=== PATIENT | female | born 1975 | race African-American/Black ===

== ENCOUNTER 2016-05-11 16:56 | Emergency (ER) | payer OTHER ==
[~2016-05-11 16:56] MED LIST: ESCI10TA PO; LEVE500T53 PO; SULF-168 PO; TRAZ-147 PO
== END 2016-05-11 18:06 | disposition left against medical advice (07) ==
LOC: EMS 16:58
DX: Z04.1 Encounter for examination and observation following transport accident (principal); Z53.21 Procedure and treatment not carried out due to patient leaving prior to being seen by health care provider

== ENCOUNTER 2016-05-11 18:43 | Emergency (ER) | payer OTHER ==
[~2016-05-11] VITALS: Ht 160 cm; Wt 91.8 kg
[2016-05-11] MEDS ORDERED: ONDANSETRON HCL 4 MG/2 ML VIAL IM ONE (20:15)
[2016-05-11] MEDS ORDERED: HYDROmorphone 2 MG/ML SYRINGE IM ONE (20:15)
[2016-05-11 20:31] VITALS: BP 128/78
== END 2016-05-11 20:43 | disposition home or self-care (01) ==
LOC: EMS 18:43
DX: M25.551 Pain in right hip (principal); G89.29 Other chronic pain; I10 Essential (primary) hypertension; F41.9 Anxiety disorder, unspecified; G40.909 Epilepsy, unspecified, not intractable, without status epilepticus; J45.909 Unspecified asthma, uncomplicated; Z88.5 Allergy status to narcotic agent; Z88.6 Allergy status to analgesic agent
CPT/HCPCS: 96372; 99284; J1170; J2405

== ENCOUNTER 2017-09-03 11:25 | Emergency (ER) | payer MEDICAID, OTHER ==
[~2017-09-03] VITALS: Ht 160 cm; Wt 93.2 kg
[~2017-09-03 11:25] MED LIST changes: -SULF-168 PO; +SULF1TAB3 PO; -TRAZ-147 PO; +TRAZ-220 PO
[2017-09-03] MEDS ORDERED: KETOROLAC TROMETHAMINE 60 MG/2 ML VIAL IM ONE (13:30)
[2017-09-03] MEDS ORDERED: ONDANSETRON HCL 4 MG TABLET PO ONE (15:00)
[2017-09-03] MEDS ORDERED: HYDROCODONE/ACETAMINOPHEN 5-325 MG TABLET PO ONE (15:00)
[2017-09-03 16:35] VITALS: BP 132/78
== END 2017-09-03 17:26 | disposition home or self-care (01) ==
LOC: EMS 11:26
DX: S89.92XA Unspecified injury of left lower leg, initial encounter (principal); M25.552 Pain in left hip; I10 Essential (primary) hypertension; J45.909 Unspecified asthma, uncomplicated; Z88.5 Allergy status to narcotic agent; Z88.6 Allergy status to analgesic agent; W18.39XA Other fall on same level, initial encounter; Y93.89 Activity, other specified; Y92.89 Other specified places as the place of occurrence of the external cause; Y99.8 Other external cause status
CPT/HCPCS: 29505; 73503; 73562; 81025; 96372; 99284; J1885; Q0162

== ENCOUNTER 2018-01-29 13:18 | Emergency (ER) | payer MEDICAID ==
[~2018-01-29] VITALS: Ht 160 cm; Wt 81.5 kg
[2018-01-29 13:19] VITALS: BP 112/77
[2018-01-29 13:34] LABS: GLUCOSE,POINT OF CARE 106 MG/DL (70-110)
[2018-01-29 15:53] LABS: BASOPHILS % (AUTO) 0.7 % (0.0-2.0); EOSINOPHILS % (AUTO) 1.1 % (1.0-6.0); HEMATOCRIT 35.4 % (36-46); HEMOGLOBIN 11.2 g/dL (12.0-16.0); LYMPHOCYTES # (AUTO) 1.7 K/uL (1.0-4.8); LYMPHOCYTES % (AUTO) 26.4 % (22.0-44.0); MEAN CORPUSCULAR HEMOGLOBIN 24.2 pg (26.0-34.0); MEAN CORPUSCULAR HGB CONC 31.6 G/dL (31.0-37.0); MEAN CORPUSCULAR VOLUME 77 fL (80-100); MONOCYTES # (AUTO) 0.4 K/uL (0.1-1.0); MONOCYTES % (AUTO) 6.5 % (2.0-9.0); NEUTROPHILS # (AUTO) 4.2 K/uL (1.8-7.7); NEUTROPHILS % (AUTO) 65.3 % (40.0-70.0); PLATELET COUNT (AUTO) 609 K/uL (150-450); RED BLOOD CELL COUNT(AUTO) 4.63 MIL/uL (4.00-5.20); RED CELL DISTRIBUTION WIDTH 21.4 % (11.5-14.5)
[2018-01-29 15:58] LABS: ANION GAP 9 mmol/L (8-16); CALCIUM, TOTAL 9.4 mg/dL (8.8-10.5); CARBON DIOXIDE 29 mmol/L (22-29); CHLORIDE 98 mmol/L (98-107); CREATININE 0.68 mg/dL (0.60-1.30); GLOMERULAR FILTR. RATE CALC > 60 mL/min (>60); GLUCOSE,RANDOM 98 mg/dL (70-110); POTASSIUM 3.8 mmol/L (3.5-5.1); SODIUM SERUM 136 mmol/L (136-145); UREA NITROGEN, BLOOD 15 mg/dL (7-18)
[2018-01-29 16:10] LABS: ALANINE AMINOTRANSFERASE 21 U/L (12-78); ALBUMIN 3.7 g/dL (3.4-5.0); ALKALINE PHOSPHATASE 86 U/L (46-116); ASPARTATE AMINOTRANSFERASE 21 U/L (15-37); BILIRUBIN,TOTAL 0.2 mg/dL (0.1-1.0); HCG,QUANTITATIVE < 1 mIU/mL (0-6); TOTAL PROTEIN, SERUM 9.1 g/dL (6.4-8.2)
[2018-01-29] MEDS ORDERED: OxyCODONE HCL/ACETAMINOPHEN 5-325 MG TABLET PO ONE (17:45)
== END 2018-01-29 18:17 | disposition home or self-care (01) ==
LOC: EMS 13:19
DX: M17.12 Unilateral primary osteoarthritis, left knee (principal); M16.12 Unilateral primary osteoarthritis, left hip; R07.9 Chest pain, unspecified; F41.9 Anxiety disorder, unspecified; F32.9 Major depressive disorder, single episode, unspecified; I10 Essential (primary) hypertension; Z88.5 Allergy status to narcotic agent; Z88.6 Allergy status to analgesic agent
CPT/HCPCS: 93005

== ENCOUNTER 2019-04-05 19:28 | Inpatient (IN) | payer MEDICAID ==
[~2019-04-05] VITALS: Ht 160 cm; Wt 78.7 kg
[~2019-04-05 19:28] MED LIST changes: -SULF1TAB3 PO; -TRAZ-220 PO; +TRAZ-257 PO
[2019-04-05 22:10] LABS: BASOPHILS % (AUTO) 1.8 % (0.0-2.0); EOSINOPHILS % (AUTO) 2.7 % (1.0-6.0); HEMATOCRIT 32.8 % (36-46); HEMOGLOBIN 10.2 g/dL (12.0-16.0); LYMPHOCYTES # (AUTO) 1.6 K/uL (1.0-4.8); LYMPHOCYTES % (AUTO) 35.8 % (22.0-44.0); MEAN CORPUSCULAR HEMOGLOBIN 23.5 pg (26.0-34.0); MEAN CORPUSCULAR VOLUME 76 fL (80-100); MONOCYTES # (AUTO) 0.2 K/uL (0.1-1.0); MONOCYTES % (AUTO) 5.4 % (2.0-9.0); NEUTROPHILS # (AUTO) 2.4 K/uL (1.8-7.7); NEUTROPHILS % (AUTO) 54.3 % (40.0-70.0); PLATELET COUNT (AUTO) 454 K/uL (150-450); RED BLOOD CELL COUNT(AUTO) 4.33 MIL/uL (4.00-5.20); RED CELL DISTRIBUTION WIDTH 20.6 % (11.5-14.5)
[2019-04-05 22:37] LABS: ANION GAP 12 mmol/L (8-16); CALCIUM, TOTAL 9.1 mg/dL (8.8-10.5); CARBON DIOXIDE 23 mmol/L (22-29); CHLORIDE 104 mmol/L (98-107); CREATININE 0.71 mg/dL (0.60-1.30); GLOMERULAR FILTR. RATE CALC > 60 mL/min (>60); GLUCOSE,RANDOM 100 mg/dL (70-110); POTASSIUM 4.2 mmol/L (3.5-5.1); SODIUM SERUM 139 mmol/L (136-145); UREA NITROGEN, BLOOD 14 mg/dL (7-18)
[2019-04-05] MEDS ORDERED: ACETAMINOPHEN 500 MG TABLET PO ONE (22:45)
[2019-04-05] MEDS ORDERED: ASPIRIN 325 MG TABLET PO ONE (22:45)
[2019-04-05 23:01] LABS: AMPHET/METH SCREEN,URINE NEGATIVE (NEGATIVE); BARBITURATE SCREEN, URINE NEGATIVE (NEGATIVE); BENZODIAZEPINES SCREEN,URINE NEGATIVE (NEGATIVE); CANNABINOID SCREEN,URINE NEGATIVE (NEGATIVE); COCAINE SCREEN,URINE NEGATIVE (NEGATIVE); METHADONE SCREEN, URINE NEGATIVE (NEGATIVE); OPIATE SCREEN,URINE NEGATIVE (NEGATIVE)
[2019-04-05 23:02] LABS: ALANINE AMINOTRANSFERASE 21 U/L (12-78); ALBUMIN 3.3 g/dL (3.4-5.0); ALKALINE PHOSPHATASE 58 U/L (46-116); ASPARTATE AMINOTRANSFERASE 19 U/L (15-37); CREATINE KINASE, TOTAL ONLY 88 U/L (26-192); TOTAL PROTEIN, SERUM 8.1 g/dL (6.4-8.2)
[2019-04-05 23:08] LABS: PHENCYCLIDINE SCREEN,URINE NEGATIVE (NEGATIVE)
[2019-04-05] MEDS ORDERED: 0.9% SODIUM CHLORIDE 10 ML SYRINGE IVP PRN (23:15)
[2019-04-05] MEDS ORDERED: ONDANSETRON HCL 4 MG/2 ML VIAL IVP PRN (23:15)
[2019-04-05] MEDS ORDERED: ACETAMINOPHEN 325 MG TABLET PO PRN ×2 (23:15→23:30)
[2019-04-05 23:19] LABS: BILIRUBIN,TOTAL 0.1 mg/dL (0.1-1.0)
[2019-04-06 01:30] VITALS: BP 123/76
[2019-04-06] MEDS ORDERED: TraMADol HCL 50 MG TABLET PO PRN (02:45)
[2019-04-06 03:45] VITALS: BP 119/82
[2019-04-06] MEDS: LORazepam 2 MG/ML VIAL IVP PRN ×2 (05:24→10:27)
[2019-04-06 07:30] VITALS: BP 103/72
[2019-04-06] MEDS ORDERED: DOCUSATE SODIUM 100 MG CAPSULE PO SCH (09:00)
[2019-04-06] MEDS ORDERED: FAMOTIDINE 20 MG TABLET PO SCH (09:00)
[2019-04-06 10:15] VITALS: BP 122/78
[2019-04-07 11:51] LABS: GLUCOMETER DEV NAME(LOC) 5N.1; GLUCOSE,POINT OF CARE 83 MG/DL (70-110)
== END 2019-04-06 15:55 | disposition home or self-care (01) | DRG 203 ==
LOC: EMS 19:29 → 5N 23:00
PROVIDERS: ADMIT Internal Medicine; ATTEND Internal Medicine
DX: R07.89 Other chest pain (principal); R56.9 Unspecified convulsions; D64.9 Anemia, unspecified; F41.1 Generalized anxiety disorder; E66.9 Obesity, unspecified; J45.909 Unspecified asthma, uncomplicated; I10 Essential (primary) hypertension; G43.909 Migraine, unspecified, not intractable, without status migrainosus; F32.9 Major depressive disorder, single episode, unspecified; G89.29 Other chronic pain; M19.90 Unspecified osteoarthritis, unspecified site; M16.0 Bilateral primary osteoarthritis of hip; Z68.30 Body mass index [BMI] 30.0-30.9, adult; Z90.49 Acquired absence of other specified parts of digestive tract; Z82.49 Family history of ischemic heart disease and other diseases of the circulatory system; Z82.5 Family history of asthma and other chronic lower respiratory diseases; Z88.8 Allergy status to other drugs, medicaments and biological substances; Z88.6 Allergy status to analgesic agent; Z98.84 Bariatric surgery status
CPT/HCPCS: 73503; 83735; 93005; 93306; J2060

== ENCOUNTER 2020-12-06 14:50 | Emergency (ER) | payer MEDICAID ==
[~2020-12-06] VITALS: Ht 160 cm; Wt 113.6 kg
[~2020-12-06 14:50] MED LIST changes: +ASPI-1198 PO; -ESCI10TA PO; +LEVE500T20 PO; -LEVE500T53 PO; +NITR0.3T12 SL; +PERCT PO; -TRAZ-257 PO
[2020-12-06] MEDS ORDERED: LevETIRAcetam 1,000 MG in DEXTROSE 5%-WATER 100 ML IV ONE (15:00)
[2020-12-06 15:20] LABS: BASOPHILS % (AUTO) 0.9 % (0.0-2.0); EOSINOPHILS % (AUTO) 4.1 % (1.0-6.0); HEMATOCRIT 33.5 % (36-46); HEMOGLOBIN 10.5 g/dL (12.0-16.0); LYMPHOCYTES # (AUTO) 2.1 K/uL (1.0-4.8); LYMPHOCYTES % (AUTO) 34.9 % (22.0-44.0); MEAN CORPUSCULAR HEMOGLOBIN 26.6 pg (26.0-34.0); MEAN CORPUSCULAR HGB CONC 31.5 G/dL (31.0-37.0); MEAN CORPUSCULAR VOLUME 85 fL (80-100); MONOCYTES # (AUTO) 0.5 K/uL (0.1-1.0); MONOCYTES % (AUTO) 9.3 % (2.0-9.0); NEUTROPHILS % (AUTO) 50.8 % (40.0-70.0); PLATELET COUNT (AUTO) 337 K/uL (150-450); RED BLOOD CELL COUNT(AUTO) 3.95 MIL/uL (4.00-5.20)
[2020-12-06 15:30] LABS: ANION GAP 12 mmol/L (8-16); CALCIUM, TOTAL 8.6 mg/dL (8.8-10.5); CARBON DIOXIDE 22 mmol/L (22-29); CHLORIDE 109 mmol/L (98-107); CREATININE 0.83 mg/dL (0.60-1.30); GLOMERULAR FILTR. RATE CALC > 60 mL/min (>60); GLUCOSE,RANDOM 79 mg/dL (70-110); POTASSIUM 3.7 mmol/L (3.5-5.1); SODIUM SERUM 143 mmol/L (136-145); UREA NITROGEN, BLOOD 14 mg/dL (7-18)
[2020-12-06 15:41] LABS: ALANINE AMINOTRANSFERASE 19 U/L (12-78); ALBUMIN 3.2 g/dL (3.4-5.0); ALKALINE PHOSPHATASE 54 U/L (46-116); ASPARTATE AMINOTRANSFERASE 18 U/L (15-37); BILIRUBIN,TOTAL 0.4 mg/dL (0.1-1.0); HCG,QUANTITATIVE 2 mIU/mL (0-6); TOTAL PROTEIN, SERUM 7.7 g/dL (6.4-8.2)
[2020-12-06 17:58] LABS: APPEARANCE,URINE CLEAR (CLEAR); BILIRUBIN,URINE NEGATIVE (NEGATIVE); GLUCOSE, URINE (UA) NEGATIVE (NEGATIVE); KETONES,URINE NEGATIVE (NEGATIVE); LEUKOCYTE ESTERASE ,URINE TRACE (NEGATIVE); NITRATE,URINE NEGATIVE (NEGATIVE); OCCULT BLOOD,URINE NEGATIVE (NEGATIVE); PH,URINE 5.5 (5.0-8.0); PROTEIN,URINE NEGATIVE (NEGATIVE); UROBILINOGEN,URINE 0.2 mg/dL (<=1.0)
[2020-12-06] MEDS ORDERED: NITROGLYCERIN 0.4 MG SUBLINGUAL TABLET #25 SL ONE (18:00)
[2020-12-06] MEDS ORDERED: ACETAMINOPHEN 325 MG TABLET PO ONE (18:00)
[2020-12-06 18:04] LABS: BACTERIA,URINE None Seen /HPF (None Seen); RBC,URINE None Seen /HPF (0-2); WBC,URINE 0-2 /HPF (0-5)
[2020-12-06 21:01] VITALS: BP 133/81
== END 2020-12-06 21:30 | disposition home or self-care (01) ==
LOC: EMS 14:56
DX: M17.12 Unilateral primary osteoarthritis, left knee (principal); R56.9 Unspecified convulsions; R07.9 Chest pain, unspecified; F41.9 Anxiety disorder, unspecified; J45.909 Unspecified asthma, uncomplicated; F32.9 Major depressive disorder, single episode, unspecified; I10 Essential (primary) hypertension; G43.909 Migraine, unspecified, not intractable, without status migrainosus; G89.29 Other chronic pain; Z90.89 Acquired absence of other organs; Z88.6 Allergy status to analgesic agent
CPT/HCPCS: 36415; 70450; 73503; 73562; 73610; 80053; 81001; 82962; 84484; 84702; 85025; 93005; 96374; 99285; J0712; J7060

== ENCOUNTER 2021-07-13 17:17 | Emergency (ER) | payer MEDICAID ==
[~2021-07-13] VITALS: Ht 170.2 cm; Wt 137.0 kg
[2021-07-13 18:58] LABS: BASOPHILS % (AUTO) 0.6 % (0.0-2.0); EOSINOPHILS % (AUTO) 1.5 % (1.0-6.0); HEMOGLOBIN 11.8 g/dL (12.0-16.0); LYMPHOCYTES # (AUTO) 1.5 K/uL (1.0-4.8); LYMPHOCYTES % (AUTO) 36.1 % (22.0-44.0); MEAN CORPUSCULAR HEMOGLOBIN 29.3 pg (26.0-34.0); MEAN CORPUSCULAR HGB CONC 32.7 G/dL (31.0-37.0); MEAN CORPUSCULAR VOLUME 90 fL (80-100); MONOCYTES # (AUTO) 0.1 K/uL (0.1-1.0); MONOCYTES % (AUTO) 3.1 % (2.0-9.0); NEUTROPHILS # (AUTO) 2.4 K/uL (1.8-7.7); NEUTROPHILS % (AUTO) 58.7 % (40.0-70.0); PLATELET COUNT (AUTO) 400 K/uL (150-450); RED BLOOD CELL COUNT(AUTO) 4.02 MIL/uL (4.00-5.20); RED CELL DISTRIBUTION WIDTH 17.9 % (11.5-14.5)
[2021-07-13 19:06] LABS: ANION GAP 14 mmol/L (8-16); CALCIUM, TOTAL 9.1 mg/dL (8.8-10.5); CARBON DIOXIDE 19 mmol/L (22-29); CHLORIDE 107 mmol/L (98-107); CREATININE 0.68 mg/dL (0.60-1.30); GLOMERULAR FILTR. RATE CALC > 60 mL/min (>60); GLUCOSE,RANDOM 54 mg/dL (70-110); POTASSIUM 3.7 mmol/L (3.5-5.1); SODIUM SERUM 140 mmol/L (136-145); UREA NITROGEN, BLOOD 14 mg/dL (7-18)
[2021-07-13 19:11] LABS: ALANINE AMINOTRANSFERASE 32 U/L (12-78); ALBUMIN 3.3 g/dL (3.4-5.0); ALKALINE PHOSPHATASE 68 U/L (46-116); ASPARTATE AMINOTRANSFERASE 34 U/L (15-37); BILIRUBIN,TOTAL 0.3 mg/dL (0.1-1.0); TOTAL PROTEIN, SERUM 7.5 g/dL (6.4-8.2)
[2021-07-13 19:16] LABS: B-TYPE NATRIURETIC PEPTIDE 38 pg/mL (0-100)
[2021-07-13] MEDS ORDERED: ASPI-1444 PO (19:25)
[2021-07-13] MEDS ORDERED: LEVE500T20 PO (19:25)
[2021-07-13] MEDS ORDERED: OXYC-618 PO (19:25)
[2021-07-13] MEDS ORDERED: HYDR25TA PO (19:25)
[2021-07-13] MEDS ORDERED: LISI5TAB21 PO (19:25)
[2021-07-13] MEDS ORDERED: ATOR20TA65 PO (19:25)
[2021-07-13] MEDS ORDERED: INSU100I40 SQ (19:25)
[2021-07-13] MEDS ORDERED: BACL5TAB PO (19:25)
[2021-07-13] MEDS ORDERED: CELE100C97 PO (19:25)
[2021-07-13] MEDS ORDERED: GABA-529 PO (19:25)
[2021-07-13] MEDS ORDERED: DEXTROSE 50%-WATER 25 GM/50 ML SYRINGE IVP ONE (19:30)
[2021-07-13 19:39] LABS: PROTHROMBIN TIME 10.6 SEC (9.4-11.6)
[2021-07-13 19:52] LABS: LACTIC ACID 3.9 mmol/L (0.4-2.0)
[2021-07-13] MEDS ORDERED: SODIUM CHLORIDE 0.9% 1,000 ML IV ONE (20:00)
[2021-07-13 20:22] LABS: COVID AG,FIA SOURCE NASAL SWAB
[2021-07-13 20:25] LABS: APPEARANCE,URINE CLEAR (CLEAR); BILIRUBIN,URINE NEGATIVE (NEGATIVE); GLUCOSE, URINE (UA) TRACE mg/dL (NEGATIVE); KETONES,URINE NEGATIVE (NEGATIVE); LEUKOCYTE ESTERASE ,URINE NEGATIVE (NEGATIVE); NITRATE,URINE NEGATIVE (NEGATIVE); OCCULT BLOOD,URINE NEGATIVE (NEGATIVE); PROTEIN,URINE NEGATIVE (NEGATIVE); SPECIFIC GRAVITIY, URINE 1.008 (1.003-1.030); UROBILINOGEN,URINE <=1.0 mg/dL (<=1.0)
[2021-07-13 20:27] VITALS: BP 132/29
[2021-07-13 20:41] LABS: GLUCOMETER DEV NAME(LOC) ERT.5; GLUCOSE,POINT OF CARE 85 MG/DL (70-110)
[2021-07-13] MEDS ORDERED: ACETAMINOPHEN 500 MG TABLET PO ONE (21:45)
== END 2021-07-13 23:43 | disposition home or self-care (01) ==
LOC: EMS 17:26
DX: R56.9 Unspecified convulsions (principal); R07.9 Chest pain, unspecified; F41.9 Anxiety disorder, unspecified; J45.909 Unspecified asthma, uncomplicated; F32.A Depression, unspecified; I10 Essential (primary) hypertension; G43.909 Migraine, unspecified, not intractable, without status migrainosus; Z86.2 Personal history of diseases of the blood and blood-forming organs and certain disorders involving the immune mechanism; Z86.69 Personal history of other diseases of the nervous system and sense organs; Z87.898 Personal history of other specified conditions; Z90.49 Acquired absence of other specified parts of digestive tract; Z98.890 Other specified postprocedural states; Z88.8 Allergy status to other drugs, medicaments and biological substances; Z20.822 Contact with and (suspected) exposure to COVID-19
CPT/HCPCS: 36415; 71045; 80053; 81003; 82962; 83605; 83880; 84484; 84703; 85025; 85610; 85730; 87426; 93005; 96361; 96374; 99285; J7030

== ENCOUNTER 2023-07-10 14:43 | Emergency (ER) | payer MEDICAID ==
[~2023-07-10] VITALS: Ht 160 cm; Wt 122.7 kg
[~2023-07-10 14:43] MED LIST changes: +ACET-3385 PO; -ASPI-1198 PO; +ASPI-1444 PO; +ATOR20TA65 PO; +GABA-529 PO; +LEVE-71 PO; -LEVE500T20 PO; -NITR0.3T12 SL; -PERCT PO
[2023-07-10 15:22] VITALS: TEMP 98.3
[2023-07-10 15:52] LABS: BASOPHILS % (AUTO) 0.4 % (0.0-2.0); EOSINOPHILS % (AUTO) 0.3 % (1.0-6.0); HEMATOCRIT 35.3 % (36-46); HEMOGLOBIN 11.4 g/dL (12.0-16.0); LYMPHOCYTES # (AUTO) 1.6 K/uL (1.0-4.8); LYMPHOCYTES % (AUTO) 18.7 % (22.0-44.0); MEAN CORPUSCULAR HEMOGLOBIN 29.8 pg (26.0-34.0); MEAN CORPUSCULAR HGB CONC 32.4 G/dL (31.0-37.0); MEAN CORPUSCULAR VOLUME 92 fL (80-100); MONOCYTES # (AUTO) 0.5 K/uL (0.1-1.0); MONOCYTES % (AUTO) 5.7 % (2.0-9.0); NEUTROPHILS # (AUTO) 6.3 K/uL (1.8-7.7); NEUTROPHILS % (AUTO) 74.9 % (40.0-70.0); PLATELET COUNT (AUTO) 313 K/uL (150-450); RED BLOOD CELL COUNT(AUTO) 3.83 MIL/uL (4.00-5.20); WHITE BLOOD COUNT (AUTO) 8.4 K/uL (4.5-11.0)
[2023-07-10 16:00] LABS: ANION GAP 11 mmol/L (8-16); CALCIUM, TOTAL 9.3 mg/dL (8.8-10.5); CARBON DIOXIDE 25 mmol/L (22-29); CHLORIDE 99 mmol/L (98-107); CREATININE 0.73 mg/dL (0.60-1.30); GLOMERULAR FILTR. RATE CALC > 60 mL/min (>60); GLUCOSE,RANDOM 101 mg/dL (70-110); POTASSIUM 3.8 mmol/L (3.5-5.1); SODIUM SERUM 135 mmol/L (136-145); UREA NITROGEN, BLOOD 12 mg/dL (7-18)
[2023-07-10 16:01] LABS: LIPASE 23 U/L (16-77)
[2023-07-10 16:03] LABS: COVID AG,FIA SOURCE NASAL SWAB
[2023-07-10 16:25] LABS: SARS-COV2 (COVID) ANTIGEN,FIA Negative (Negative)
[2023-07-10 16:33] LABS: INFLUENZA TYPE A NEGATIVE FOR TYPE A (NEGATIVE); INFLUENZA TYPE B NEGATIVE FOR TYPE B (NEGATIVE)
[2023-07-10] MEDS: ONDANSETRON HCL 4 MG/2 ML VIAL IVP ONE (16:34)
[2023-07-10] MEDS: ACETAMINOPHEN 500 MG TABLET PO ONE (16:34)
[2023-07-10] MEDS: MORPHINE SULFATE 4 MG/ML SYRINGE IVP ONE (16:35)
[2023-07-10] MEDS: SODIUM CHLORIDE 0.9% 1,000 ML IV ONE (16:36)
[2023-07-10 16:52] VITALS: BP 145/95; PULSE 85; RESP 18
[2023-07-10] MEDS ORDERED: GUAIFDM PO (17:29)
[2023-07-10] MEDS ORDERED: ACET-2080 PO (17:29)
[2023-07-10] MEDS ORDERED: ONDA-104 PO (17:30)
== END 2023-07-10 18:03 | disposition home or self-care (01) ==
LOC: EMS 15:00
DX: J06.9 Acute upper respiratory infection, unspecified (principal); R10.84 Generalized abdominal pain; F41.9 Anxiety disorder, unspecified; J45.909 Unspecified asthma, uncomplicated; F32.A Depression, unspecified; I10 Essential (primary) hypertension; G43.909 Migraine, unspecified, not intractable, without status migrainosus; G89.29 Other chronic pain; Z90.49 Acquired absence of other specified parts of digestive tract; Z98.890 Other specified postprocedural states; Z20.822 Contact with and (suspected) exposure to COVID-19; Z82.0 Family history of epilepsy and other diseases of the nervous system
CPT/HCPCS: 99284; 96374; 96361; 96375; 87426; 80048; 82962; 83690; 85025; 87804; 36415; J2270; J2405; J7030; 99283

== ENCOUNTER 2024-08-27 16:32 | Inpatient (IN) | payer MEDICAID ==
[~2024-08-27] VITALS: Ht 157.5 cm; Wt 101.6 kg
[~2024-08-27 16:32] MED LIST changes: -ACET-3385 PO; +AMLO5TAB66 PO; +CLON0.5T4 PO; +CYCL10TA16 PO; +DICL100G60 TP; +FERR-72 PO; +GABA-1201 PO; -GABA-529 PO; +HYDR25TA PO; +HYDR28.35 TP; +LABE200T58 PO; -LEVE-71 PO; +LEVE100023 PO; +LIDO700A30 TP; +LORA10TA7 PO; +LOSA-381 PO; +METF-81 PO; +NALO4SPR22 NASAL; +OXYC-42 PO; +OXYC15TA2 PO; +PANT-31 PO; +QUET100T PO; +SEMA0.253 SQ; +SERT-439 PO; +VALP250C48 PO
[2024-08-27 16:59] LABS: PLATELET COUNT (AUTO) 309 K/uL (150-450); RED BLOOD CELL COUNT(AUTO) 3.92 MIL/uL (4.00-5.20); RED CELL DISTRIBUTION WIDTH 15.4 % (11.5-14.5); WHITE BLOOD COUNT (AUTO) 4.1 K/uL (4.5-11.0)
[2024-08-27 17:08] LABS: CALCIUM, TOTAL 8.1 mg/dL (8.8-10.5); CREATININE 0.87 mg/dL (0.60-1.30); GLOMERULAR FILTR. RATE CALC > 60 mL/min (>60); GLUCOSE,RANDOM 94 mg/dL (70-110); SODIUM SERUM 141 mmol/L (136-145); UREA NITROGEN, BLOOD 12 mg/dL (7-18)
[2024-08-27 17:15] LABS: TROPONIN I-HIGH SENSITIVITY 6 ng/L (<51)
[2024-08-27 17:17] LABS: ALCOHOL, BLOOD (SERUM) < 3 mg/dL (0-10); LACTIC ACID 0.9 mmol/L (0.4-2.0)
[2024-08-27] MEDS: LORazepam 2 MG/ML VIAL IVP ONE (19:41)
[2024-08-27] MEDS ORDERED: MAGNESIUM HYDROXIDE SUSPENSION 30 ML UDCUP PO PRN (20:30)
[2024-08-27] MEDS ORDERED: ACETAMINOPHEN 325 MG TABLET PO PRN (20:30)
[2024-08-27] MEDS ORDERED: BISACODYL 10 MG RECTAL RECTAL SUPPOSITORY PR PRN (20:30)
[2024-08-27] MEDS ORDERED: PANTOPRAZOLE SODIUM 40 MG DR TABLET PO SCH (21:00)
[2024-08-27] MEDS: GABAPENTIN 400 MG CAPSULE PO SCH (21:00)
[2024-08-27] MEDS: DOCUSATE SODIUM 100 MG CAPSULE PO SCH (21:00)
[2024-08-27] MEDS: CYCLOBENZAPRINE HCL 10 MG TABLET PO PRN (21:09)
[2024-08-27] MEDS: MetFORMIN HCL 500 MG ER TABLET PO SCH (21:10)
[2024-08-27] MEDS: MORPHINE SULFATE 2 MG/ML SYRINGE IVP PRN (21:10)
[2024-08-27] MEDS: LABETALOL HCL 200 MG TABLET PO SCH (21:10)
[2024-08-28] VITALS (7 sets, daily range): BP systolic 109–138; BP diastolic 64–96; PULSE 68–87; RESP 16–20; TEMP 97.7–98.6; O2SAT 96–99
[2024-08-28] MEDS: HEPARIN SODIUM,PORCINE 5,000 UNITS/ML VIAL SQ SCH
[2024-08-28] MEDS: ZOLPIDEM TARTRATE 5 MG TABLET PO PRN (00:11)
[2024-08-28] MEDS: LORazepam 2 MG/ML VIAL IVP PRN (00:12)
[2024-08-28] MEDS: HYDROCODONE/ACETAMINOPHEN 5-325 MG TABLET PO PRN (03:41)
[2024-08-28 06:06] LABS: PLATELET COUNT (AUTO) 279 K/uL (150-450); RED BLOOD CELL COUNT(AUTO) 3.44 MIL/uL (4.00-5.20); RED CELL DISTRIBUTION WIDTH 15.2 % (11.5-14.5); WHITE BLOOD COUNT (AUTO) 2.9 K/uL (4.5-11.0)
[2024-08-28 06:11] LABS: CALCIUM, TOTAL 8.2 mg/dL (8.8-10.5); CREATININE 0.85 mg/dL (0.60-1.30); GLOMERULAR FILTR. RATE CALC > 60 mL/min (>60); GLUCOSE,RANDOM 87 mg/dL (70-110); SODIUM SERUM 143 mmol/L (136-145); UREA NITROGEN, BLOOD 13 mg/dL (7-18)
[2024-08-28 06:19] LABS: TROPONIN I-HIGH SENSITIVITY 6 ng/L (<51)
[2024-08-28 07:20] LABS: GLUCOMETER DEV NAME(LOC) 5N.1D; GLUCOSE,POINT OF CARE 90 MG/DL (70-110)
[2024-08-28] MEDS: FERROUS SULFATE 325 MG EC TABLET PO SCH (08:40)
[2024-08-28] MEDS: LOSARTAN POTASSIUM 25 MG TABLET PO SCH (08:41)
[2024-08-28] MEDS: PANTOPRAZOLE SODIUM 40 MG DR TABLET PO SCH (08:42)
[2024-08-28] MEDS: SERTRALINE HCL 50 MG TABLET PO SCH (08:42)
[2024-08-28] MEDS: ATORVASTATIN CALCIUM 20 MG TABLET PO SCH (08:42)
[2024-08-28] MEDS: ASPIRIN 81 MG DR TABLET PO SCH (09:00)
[2024-08-28] MEDS ORDERED: METF-81 PO (11:16)
[2024-08-28] MEDS: MetFORMIN HCL 500 MG ER TABLET PO SCH (12:33)
[2024-08-28] MEDS ORDERED: POTASSIUM CHL 10 MEQ/WATER 50 ML IV PRN (13:00)
[2024-08-28] MEDS: ONDANSETRON HCL 4 MG/2 ML VIAL IVP PRN (13:19)
[2024-08-28] MEDS: POTASSIUM CHLORIDE 20 MEQ ER TABLET PO PRN (18:20)
[2024-08-29] VITALS (8 sets, daily range): BP systolic 107–136; BP diastolic 65–86; PULSE 66–85; RESP 16–18; TEMP 97.7–98.6; O2SAT 17–100
[2024-08-29 06:41] LABS: TROPONIN I-HIGH SENSITIVITY 8 ng/L (<51)
[2024-08-29] MEDS: ALBUTEROL SULFATE 2.5 MG/0.5 ML NEB SOLUTION NEB PRN (06:50)
[2024-08-29] MEDS ORDERED: GADOTERATE MEGLUMINE 10 MMOL/20 ML VIAL IVP ONE (14:38)
[2024-08-29] MEDS: ETHYL ALCOHOL 62% ANTISEPTIC NASAL SANITIZER 0.6 ML AMPUL NASAL SCH (21:31)
[2024-08-29] MEDS: NYSTATIN 15 GM POWDER BOTTLE TP SCH (21:31)
[2024-08-30 00:11] VITALS: BP 105/58; PULSE 64; RESP 18; TEMP 97.9; O2SAT 97
[2024-08-30 06:21] VITALS: BP 94/55; PULSE 83; RESP 16; TEMP 97.9; O2SAT 96
[2024-08-30 07:08] LABS: CALCIUM, TOTAL 9.0 mg/dL (8.8-10.5); CREATININE 0.81 mg/dL (0.60-1.30); GLOMERULAR FILTR. RATE CALC > 60 mL/min (>60); GLUCOSE,RANDOM 80 mg/dL (70-110); SODIUM SERUM 142 mmol/L (136-145); UREA NITROGEN, BLOOD 10 mg/dL (7-18)
[2024-08-30] MEDS: RINGERS SOLUTION,LACTATED 1,000 ML IV ONE (07:59)
[2024-08-30 10:00] VITALS: BP 110/62; PULSE 80; RESP 18; TEMP 98; O2SAT 96
[2024-08-30 15:25] VITALS: BP 113/66; PULSE 78; RESP 19; TEMP 98.2; O2SAT 97
[2024-08-30 20:05] VITALS: BP 144/92; PULSE 71; RESP 18; TEMP 97.5; O2SAT 99
[2024-08-30 23:51] VITALS: BP 104/55; PULSE 82; RESP 18; TEMP 97.7; O2SAT 96
[2024-08-31 03:15] VITALS: BP 119/81; PULSE 74; RESP 18; TEMP 97.7; O2SAT 95
[2024-08-31 07:38] LABS: PLATELET COUNT (AUTO) 314 K/uL (150-450); RED BLOOD CELL COUNT(AUTO) 3.83 MIL/uL (4.00-5.20); RED CELL DISTRIBUTION WIDTH 15.1 % (11.5-14.5); WHITE BLOOD COUNT (AUTO) 3.5 K/uL (4.5-11.0)
[2024-08-31 07:45] VITALS: PULSE 69; RESP 16; O2SAT 96
[2024-08-31 07:46] LABS: CALCIUM, TOTAL 9.3 mg/dL (8.8-10.5); CREATININE 0.76 mg/dL (0.60-1.30); GLOMERULAR FILTR. RATE CALC > 60 mL/min (>60); GLUCOSE,RANDOM 70 mg/dL (70-110); SODIUM SERUM 140 mmol/L (136-145); UREA NITROGEN, BLOOD 10 mg/dL (7-18)
[2024-08-31 07:52] VITALS: BP 108/75; PULSE 68; RESP 18; TEMP 97.9; O2SAT 95
[2024-08-31 08:00] VITALS: PULSE 68; RESP 16; O2SAT 97
[2024-08-31 13:18] VITALS: BP 145/75; PULSE 84; RESP 19; TEMP 97.7; O2SAT 94
== END 2024-08-31 17:40 | disposition home health service (06) | DRG 203 ==
LOC: EMS 16:34 → EDH 20:28 → 5N 22:57
PROVIDERS: ADMIT Internal Medicine; ATTEND Internal Medicine
DX: M94.0 Chondrocostal junction syndrome [Tietze] (principal); E66.9 Obesity, unspecified; F32.A Depression, unspecified; I10 Essential (primary) hypertension; F41.9 Anxiety disorder, unspecified; G89.29 Other chronic pain; G43.909 Migraine, unspecified, not intractable, without status migrainosus; M48.061 Spinal stenosis, lumbar region without neurogenic claudication; M51.369 Other intervertebral disc degeneration, lumbar region without mention of lumbar back pain or lower extremity pain; M51.379 Other intervertebral disc degeneration, lumbosacral region without mention of lumbar back pain or lower extremity pain; M48.07 Spinal stenosis, lumbosacral region; S89.82XA Other specified injuries of left lower leg, initial encounter; J45.909 Unspecified asthma, uncomplicated; M47.816 Spondylosis without myelopathy or radiculopathy, lumbar region; W05.0XXA Fall from non-moving wheelchair, initial encounter; Z98.84 Bariatric surgery status; Z68.41 Body mass index [BMI] 40.0-44.9, adult; Y93.89 Activity, other specified; Y92.89 Other specified places as the place of occurrence of the external cause; Y99.8 Other external cause status; Z88.6 Allergy status to analgesic agent; Z90.49 Acquired absence of other specified parts of digestive tract; Z79.899 Other long term (current) drug therapy
CPT/HCPCS: 71045; 72158; 72195; 73700; 80048; 82962; 83605; 83690; 84132; 84484; 84550; 85025; 87081; 93005; 94640; 96374; 96375; 97110; 97116; 97162; 97166; 97530; 97535; 99285; G0480; J1171; J1200; J1644; J2060; J2270; J2405; J7120; J7509; 36415-L1; 36415-TC; J7613

== ENCOUNTER 2024-12-08 11:52 | Inpatient (IN) | payer MEDICAID ==
[~2024-12-08] VITALS: Ht 160 cm; Wt 98.5 kg
[~2024-12-08 11:52] MED LIST changes: +CARI-493 PO; -CLON0.5T4 PO; -CYCL10TA16 PO; -DICL100G60 TP; -FERR-72 PO; -GABA-1201 PO; +GABA-1404 PO; -HYDR25TA PO; -HYDR28.35 TP; -LIDO700A30 TP; -LOSA-381 PO; +LOSA-417 PO; -NALO4SPR22 NASAL; -OXYC-42 PO; +SENN-395 PO; -VALP250C48 PO
[2024-12-08] MEDS: SODIUM CHLORIDE 0.9% 1,000 ML IV ONE (12:28)
[2024-12-08 12:56] LABS: PLATELET COUNT (AUTO) 258 K/uL (150-450); RED BLOOD CELL COUNT(AUTO) 3.54 MIL/uL (4.00-5.20); RED CELL DISTRIBUTION WIDTH 15.4 % (11.5-14.5); WHITE BLOOD COUNT (AUTO) 5.0 K/uL (4.5-11.0)
[2024-12-08 13:02] LABS: CALCIUM, TOTAL 8.8 mg/dL (8.8-10.5); CREATININE 1.77 mg/dL (0.60-1.30); GLOMERULAR FILTR. RATE CALC 37 mL/min (>60); GLUCOSE,RANDOM 75 mg/dL (70-110); SODIUM SERUM 138 mmol/L (136-145); UREA NITROGEN, BLOOD 19 mg/dL (7-18)
[2024-12-08 13:12] LABS: TROPONIN I-HIGH SENSITIVITY 5 ng/L (<51)
[2024-12-08 13:25] LABS: ALCOHOL, BLOOD (SERUM) < 3 mg/dL (0-10)
[2024-12-08 13:49] LABS: LACTIC ACID 3.2 mmol/L (0.4-2.0)
[2024-12-08 14:13] LABS: APPEARANCE,URINE HAZY (CLEAR); GLUCOSE, URINE (UA) NEGATIVE (NEGATIVE); LEUKOCYTE ESTERASE ,URINE SMALL (NEGATIVE); NITRATE,URINE NEGATIVE (NEGATIVE); OCCULT BLOOD,URINE NEGATIVE (NEGATIVE); PH,URINE DRUG SCREEN 5.5 (5.0-8.0); SPECIFIC GRAVITIY, URINE 1.009 (1.003-1.030)
[2024-12-08 14:20] LABS: AMPHET/METH SCREEN,URINE NEGATIVE (NEGATIVE); BARBITURATE SCREEN, URINE NEGATIVE (NEGATIVE); CANNABINOID SCREEN,URINE NEGATIVE (NEGATIVE); COCAINE SCREEN,URINE NEGATIVE (NEGATIVE); METHADONE SCREEN, URINE NEGATIVE (NEGATIVE)
[2024-12-08 14:21] LABS: ALCOHOL, URINE DRUG SCREEN NEGATIVE (NEGATIVE)
[2024-12-08 14:35] LABS: SQUAMOUS EPITHELIAL CELL,UR Moderate /LPF (None Seen)
[2024-12-08] MEDS: HEPARIN SODIUM,PORCINE 5,000 UNITS/ML VIAL SQ SCH (15:48)
[2024-12-08] MEDS: SODIUM CHLORIDE 0.9% 1,000 ML IV SCH (15:48)
[2024-12-08 20:38] VITALS: BP 149/88; PULSE 72; RESP 18; TEMP 98.1; O2SAT 98
[2024-12-08] MEDS: DOCUSATE SODIUM 100 MG CAPSULE PO SCH (21:00)
[2024-12-08] MEDS ORDERED: SUMA100T21 PO (21:32)
[2024-12-08] MEDS: NALOXONE HCL 0.4 MG/ML VIAL IVP SCH (22:08)
[2024-12-08] MEDS ORDERED: SENNOSIDES/DOCUSATE SODIUM 8.6-50 MG TABLET PO PRN (22:30)
[2024-12-09] VITALS: BP 152/88; PULSE 84; RESP 18; TEMP 97.8; O2SAT 97
[2024-12-09] MEDS: ONDANSETRON HCL 4 MG/2 ML VIAL IVP PRN (01:30)
[2024-12-09 04:00] VITALS: BP 152/106; PULSE 68; RESP 18; TEMP 97.8; O2SAT 100
[2024-12-09] MEDS: ACETAMINOPHEN 325 MG TABLET PO PRN (04:03)
[2024-12-09 06:10] LABS: PLATELET COUNT (AUTO) 271 K/uL (150-450); RED BLOOD CELL COUNT(AUTO) 3.64 MIL/uL (4.00-5.20); RED CELL DISTRIBUTION WIDTH 15.1 % (11.5-14.5); WHITE BLOOD COUNT (AUTO) 3.3 K/uL (4.5-11.0)
[2024-12-09 06:21] LABS: CALCIUM, TOTAL 9.2 mg/dL (8.8-10.5); CREATININE 0.65 mg/dL (0.60-1.30); GLOMERULAR FILTR. RATE CALC > 60 mL/min (>60); GLUCOSE,RANDOM 83 mg/dL (70-110); SODIUM SERUM 141 mmol/L (136-145); UREA NITROGEN, BLOOD 8 mg/dL (7-18)
[2024-12-09] MEDS ORDERED: POTASSIUM CHL 10 MEQ/WATER 50 ML IV PRN (08:00)
[2024-12-09 08:25] VITALS: BP 178/101; PULSE 72; RESP 18; TEMP 98.6; O2SAT 98
[2024-12-09] MEDS: GABAPENTIN 300 MG CAPSULE PO SCH (10:51)
[2024-12-09] MEDS: PANTOPRAZOLE SODIUM 40 MG DR TABLET PO SCH (10:51)
[2024-12-09] MEDS: LABETALOL HCL 200 MG TABLET PO SCH (10:51)
[2024-12-09] MEDS: SERTRALINE HCL 50 MG TABLET PO SCH (10:51)
[2024-12-09] MEDS: LOSARTAN POTASSIUM 25 MG TABLET PO SCH (10:52)
[2024-12-09] MEDS: ASPIRIN 81 MG DR TABLET PO SCH (10:52)
[2024-12-09] MEDS: ATORVASTATIN CALCIUM 20 MG TABLET PO SCH (10:52)
[2024-12-09 12:00] VITALS: BP 159/86; PULSE 77; RESP 18; TEMP 98.2; O2SAT 98
[2024-12-09] MEDS: POTASSIUM CHLORIDE 20 MEQ ER TABLET PO PRN (15:19)
[2024-12-09] MEDS: LORATADINE 10 MG TABLET PO PRN (15:19)
[2024-12-09 16:11] VITALS: BP 178/98; PULSE 76; RESP 18; TEMP 98.4; O2SAT 99
[2024-12-09 18:30] VITALS: BP 149/96; PULSE 84; RESP 18; O2SAT 99
[2024-12-10 00:33] VITALS: BP 159/95; PULSE 89; RESP 18; TEMP 98.4; O2SAT 98
[2024-12-10 05:01] VITALS: BP 152/99; PULSE 86; RESP 18; TEMP 98.1; O2SAT 98
[2024-12-10] MEDS ORDERED: AMLO-258 PO (08:54)
[2024-12-10] MEDS ORDERED: HYDR25TA2 PO (08:56)
[2024-12-10] MEDS: POTASSIUM CHLORIDE 10% 40 MEQ/30 ML LIQUID UDCUP PO ONE (09:42)
== END 2024-12-10 13:20 | disposition home or self-care (01) | DRG 812 ==
LOC: EMS 11:52 → EDH 18:03 → 5N 21:32 → 6S 12-10 00:39
PROVIDERS: ADMIT Internal Medicine; ATTEND Internal Medicine
DX: T40.601A Poisoning by unspecified narcotics, accidental (unintentional), initial encounter (principal); N17.0 Acute kidney failure with tubular necrosis; G92.8 Other toxic encephalopathy; T42.4X1A Poisoning by benzodiazepines, accidental (unintentional), initial encounter; E87.20 Acidosis, unspecified; T40.411A Poisoning by fentanyl or fentanyl analogs, accidental (unintentional), initial encounter; T40.691A Poisoning by other narcotics, accidental (unintentional), initial encounter; Y92.89 Other specified places as the place of occurrence of the external cause; I10 Essential (primary) hypertension; I95.9 Hypotension, unspecified; E87.6 Hypokalemia; G40.909 Epilepsy, unspecified, not intractable, without status epilepticus; G89.4 Chronic pain syndrome; J45.909 Unspecified asthma, uncomplicated; F32.A Depression, unspecified; F41.9 Anxiety disorder, unspecified; G43.909 Migraine, unspecified, not intractable, without status migrainosus; Z79.891 Long term (current) use of opiate analgesic; Z82.49 Family history of ischemic heart disease and other diseases of the circulatory system; Z82.5 Family history of asthma and other chronic lower respiratory diseases; Z87.59 Personal history of other complications of pregnancy, childbirth and the puerperium; Z98.84 Bariatric surgery status
CPT/HCPCS: 51702; 70450; 71045; 80048; 80307; 81001; 82140; 83605; 83690; 83735; 84132; 84300; 84484; 85025; 87081; 93005; 96360; 97116; 97163; 99291; G0480; J1644; J2312; J2405; J7030; 36415-L1; 36415-TC